=== PATIENT | male | born 1945 ===

== ENCOUNTER 2017-10-13 06:34 | Day surgery (SDC) | payer MEDICARE, OTHER ==
[~2017-10-13] VITALS: Ht 177.8 cm; Wt 110.0 kg
[2017-10-13 07:26] VITALS: BP 171/88; PULSE 66; RESP 20; TEMP 97.7
[2017-10-13] MEDS ORDERED: ASPI81CH7 CHEW (07:30)
[2017-10-13] MEDS ORDERED: HYDR25TA5 PO (07:30)
[2017-10-13] MEDS ORDERED: IBUP200T47 PO (07:30)
[2017-10-13] MEDS ORDERED: ATEN100T PO (07:30)
[2017-10-13] MEDS ORDERED: OMEGCAP PO (07:30)
[2017-10-13] MEDS ORDERED: SODIUM CHLOR 0.9% 1000 ML INJ 1,000 ML IV SCH (07:30)
[2017-10-13] MEDS ORDERED: TAMS0.4C4 PO (07:30)
[2017-10-13 07:57] LABS: AUTOMATED NEUTROPHIL # 3.4 TH/MM3 (1.8-7.7); BASOPHIL % 0.4 % (0.0-2.0); EOSINOPHIL # 0.3 TH/MM3 (0-0.4); EOSINOPHIL % 4.4 % (0.0-4.0); HEMATOCRIT 41.5 % (39.0-51.0); HEMO FLAGS DIFF FINAL; LYMPH % 24.5 % (9.0-44.0); LYMPHOCYTE # 1.5 TH/MM3 (1.0-4.8); MEAN CORPUSCULAR HEMOGLOBIN 31.7 PG (27.0-34.0); MEAN CORPUSCULAR HGB CONC 34.1 % (32.0-36.0); MONO % 15.2 % (0.0-8.0); NEUT % 55.5 % (16.0-70.0); PLATELET COUNT 186 TH/MM3 (150-450); RED BLOOD COUNT 4.47 MIL/MM3 (4.50-5.90); RED CELL DISTRIBUTION WIDTH 13.9 % (11.6-17.2); WHITE BLOOD COUNT 6.1 TH/MM3 (4.0-11.0)
[2017-10-13 08:06] LABS: APTT (PATIENT) 30.2 SEC (24.3-30.1); PROTHROMBIN TIME - PATIENT 10.5 SEC (9.8-11.6)
[2017-10-13] MEDS ORDERED: LIDOCAINE HCL 1% 20 ML VIAL ONE (08:26)
[2017-10-13] MEDS ORDERED: MIDAZOLAM HCL 2 MG/2 ML VIAL ONE ×2 (08:40)
--- NOTE | 2017-10-13 09:31 | PD.RAD ---
Post CT Procedure Prog Note Pre Procedure Diagnosis: (1) Chronic right flank pain Post Procedure Diagnosis: (1) Chronic right flank pain Procedure Date: Oct 13, 2017 Supervising Radiologist: Luis Herrera JR Anesthesia: Conscious Sedation Plan of Activity Patient to Unit: [facility] Additional Comments: Right renal cyst aspiration performed yielding 100 mL of clear, serous fluid. Sampling not requested. F/U CT shows decompression of entire cyst. See PACS Report for procedural detail/treatment Jr. Javier,Luis Arce MD Oct 13, 2017 09:31
[2017-10-13 09:40] VITALS: BP 145/86; PULSE 63; RESP 20; TEMP 97.6; O2SAT 92
[2017-10-13 09:55] VITALS: BP 174/98; PULSE 64; RESP 20; O2SAT 92
--- NOTE | 2017-10-13 10:01 | RADRPT ---
EXAM DATE/TIME: 10/13/2017 08:47 [place] COMPARISON: No previous studies available for comparison. INDICATIONS : Cyst; right flank pain. SEDATION TIME: 15 minutes MEDICATION(S): 1.) 2 mg midazolam (Versed) IV 2.) 100 mcg fentanyl (Sublimaze) IV DEVICE(S): 1.) 18 gauge Carmichael blunt needle FLUID: Total volume of 100 cc of clear, yellow fluid was removed. Fluid was discarded. MEDICAL HISTORY : None. SURGICAL HISTORY : None. ENCOUNTER: Initial ACUITY: 1 day PAIN SCORE: 0/10 LOCATION: Right flank PROCEDURE: 1.) Conscious sedation with continuous EKG and oximetry monitoring. 2.) EKG and oximetry remained stable throughout the procedure. PROCEDURE : CT guided right renal cyst aspiration. I discussed with the patient the process of draining this cyst. I explained to him this may or may no t resolve his right flank pain. I also explained to him the likelihood of recurrence of the cyst. The risks, benefits and alternatives to the procedure were explained and verbal and written consent was obtained. Using automated exposure control and adjustment of the mA and/or kV according to patient s ize, radiation dose was kept as low as reasonably achievable to obtain optimal diagnostic quality meghan ges. The site was prepped in sterile fashion. Full sterile technique was used, including cap, mask, sterile gloves and gown and a large sterile sheet. Hand hygiene and 2% chlorhexidine and/or betadin e/alcohol prep was utilized per protocol for cutaneous antisepsis. The skin and subcutaneous tissues were infiltrated with local anesthetic solution. DICOM format image data is available electronicall y for review and comparison. Under CT guidance an 18 gauge Carmichael needle was passed into the dominant right posterior renal cyst that measures 6.9 cm in size. Clear serous fluid was noted. A wire was coiled in the cyst and a 7 Franky nch nonlocking drainage catheter coiled within the cyst. Aspiration yielded 100 mL's of fluid. Follow up CT shows total decompression of the cyst. CONCLUSION: Uncomplicated right renal cyst decompression as above. The central component of the cyst would make s clerosing high risk. Luis Herrera Jr., MD on October 13, 2017 at 9:56 Board Certified Radiologist. This report was verified electronically.
[2017-10-13 10:25] VITALS: BP 149/74; PULSE 66; RESP 20; O2SAT 93
[2017-10-13 10:55] VITALS: BP 149/84; PULSE 59; RESP 20; O2SAT 93
[2017-10-13 11:25] VITALS: BP 153/93; PULSE 64; RESP 20; O2SAT 93
== END 2017-10-13 11:45 | disposition home or self-care (01) ==
LOC: HRIP 06:34 → HRAD 06:34
PROVIDERS: ATTEND Urology
DX: N28.1 Cyst of kidney, acquired (principal); I10 Essential (primary) hypertension
CPT/HCPCS: 50390; 77012; 85025; 85610; 85730; 99152; C1729; C1769; J2250; J3010; J7030